=== PATIENT | female | born 1995 | race Caucasian/White ===

== ENCOUNTER 2017-10-06 10:29 | Outpatient (CLI) | payer OTHER ==
[~2017-10-06] VITALS: Ht 167.6 cm; Wt 69.1 kg
[~2017-10-06 10:29] MED LIST: FIORICET 50-301 EACH PO; KEFLEX500 MG PO; NAPROSYN500 MG PO; NO HOME MEDS; PHENERGAN-CODE120 ML PO; PREDNISONE20 MG PO; TRAMADOL HCL50 MG PO
[2017-10-06 10:56] VITALS: BP 115/65
[2017-10-07] MEDS ORDERED: DOLOPHINE HCL10 MG PO (08:06)
[2017-10-07] MEDS ORDERED: BUSPAR10 MG PO ×2 (08:07→08:43)
[2017-10-07] MEDS ORDERED: METOCLOPRAMIDE H5 MG PO (08:08)
[2017-10-07] MEDS ORDERED: IBUPROFEN800 MG PO (18:36)
== END 2017-10-06 12:00 | disposition home or self-care (01) ==
LOC: LDRP-OP 10:29 → 2WEST 10:31
DX: O28.3 Abnormal ultrasonic finding on antenatal screening of mother (principal); O36.5930 Maternal care for other known or suspected poor fetal growth, third trimester, not applicable or unspecified; O99.513 Diseases of the respiratory system complicating pregnancy, third trimester; O99.343 Other mental disorders complicating pregnancy, third trimester; O99.333 Smoking (tobacco) complicating pregnancy, third trimester; F31.9 Bipolar disorder, unspecified; F41.9 Anxiety disorder, unspecified; F11.20 Opioid dependence, uncomplicated; F17.210 Nicotine dependence, cigarettes, uncomplicated; J45.909 Unspecified asthma, uncomplicated; Z3A.37 37 weeks gestation of pregnancy
CPT/HCPCS: 59025; G0378

== ENCOUNTER 2017-10-07 07:13 | Inpatient (IN) | payer OTHER ==
[2017-10-07] VITALS (17 sets, daily range): BP systolic 98–123; BP diastolic 55–76
[~2017-10-07] VITALS: Ht 167.6 cm; Wt 68.0 kg
[2017-10-07] MEDS ORDERED: DOLOPHINE HCL10 MG PO (08:06)
[2017-10-07] MEDS ORDERED: BUSPAR10 MG PO ×2 (08:07→08:43)
[2017-10-07] MEDS ORDERED: METOCLOPRAMIDE H5 MG PO (08:08)
[2017-10-07 09:00] LABS: AMPHETAMINE NEGATIVE (500 ng/mL); BARBITURATES NEGATIVE (200 ng/mL); BENZODIAZEPINES NEGATIVE (150 ng/mL); BUPRENORPHINE NEGATIVE (10 ng/mL); COCAINE NEGATIVE (150 ng/mL); METHADONE PRESUMPTIVE POSITIVE (200 ng/mL); METHAMPHETAMINE NEGATIVE (500 ng/mL); OPIATES (MORPHINE) NEGATIVE (100 ng/mL); OXYCODONE NEGATIVE (100 ng/mL); PHENCYCLIDINE NEGATIVE (25 ng/mL); PROPOXYPHENE NEGATIVE (300 ng/mL); THC CANNABINOIDS PRESUMPTIVE POSITIVE (50 ng/mL); TRICYCLIC ANTIDEPRESSANTS NEGATIVE (300 ng/mL)
[2017-10-07 10:44] LABS: BASOPHIL (%) 0.3 % (0-1); EOSINOPHIL (%) 1.1 % (0-5); EOSINOPHIL COUNT 0.1 K/uL (0-0.3); HEMATOCRIT 33.3 % (36.0-46.0); HEMOGLOBIN 11.7 G/DL (11.9-15.5); IMMATURE GRANULOCYTE (%) 0.3 % (0.0-0.7); LYMPHOCYTE COUNT 2.2 K/uL (1.0-2.8); MCH 31.5 PG (29.0-34.0); MCHC 35.1 G/DL (30.0-36.0); MCV 89.8 FL (83-99); MONOCYTE (%) 7.6 % (3-12); MONOCYTE COUNT 0.8 K/uL (0-0.8); NEUTROPHIL (%) 68.7 % (45-76); NEUTROPHIL COUNT 6.8 K/uL (1.8-6.4); PLATELET COUNT 275 K/uL (156-360); RBC DIS.WIDTH-CV 14.1 % (11.8-14.6); RBC DIS.WIDTH-SD 46.3 % (39-53); RED BLOOD COUNT 3.71 M/uL (3.80-5.20); WHITE BLOOD COUNT 9.9 K/uL (4.1-10.2)
[2017-10-07] MEDS ORDERED: IBUPROFEN800 MG PO (18:36)
[2017-10-08 06:56] VITALS: BP 113/66
[2017-10-08 14:59] VITALS: BP 118/67
[2017-10-08 22:33] VITALS: BP 117/75
== END 2017-10-09 18:20 | disposition home or self-care (01) | DRG 775 ==
LOC: LDRP-OP 07:13 → 2WEST 07:14 → LDRP-OP 13:46 → 2WEST 18:15 → LDRP-OP 11-17 12:23
PROVIDERS: Advanced Practice Midwife
PROC: 10E0XZZ Delivery of Products of Conception, External Approach (ICD-10-PCS; principal; 2017-10-07)
PROC: 10907ZC Drainage of Amniotic Fluid, Therapeutic from Products of Conception, Via Natural or Artificial Opening (ICD-10-PCS; principal; 2017-10-07)
PROC: 00HU33Z Insertion of Infusion Device into Spinal Canal, Percutaneous Approach (ICD-10-PCS; principal; 2017-10-07)
PROC: 3E033VJ Introduction of Other Hormone into Peripheral Vein, Percutaneous Approach (ICD-10-PCS; principal; 2017-10-07)
PROC: 3E0R3BZ Introduction of Anesthetic Agent into Spinal Canal, Percutaneous Approach (ICD-10-PCS; principal; 2017-10-07)
DX: O36.5930 Maternal care for other known or suspected poor fetal growth, third trimester, not applicable or unspecified (principal); O99.324 Drug use complicating childbirth; F11.20 Opioid dependence, uncomplicated; O99.344 Other mental disorders complicating childbirth; F32.9 Major depressive disorder, single episode, unspecified; F41.9 Anxiety disorder, unspecified; O99.334 Smoking (tobacco) complicating childbirth; F17.200 Nicotine dependence, unspecified, uncomplicated; Z20.5 Contact with and (suspected) exposure to viral hepatitis; Z3A.38 38 weeks gestation of pregnancy; Z37.0 Single live birth; Z79.899 Other long term (current) drug therapy
CPT/HCPCS: 59025; 84999; 85025; 88307; C1755; G0378; J7120